=== PATIENT | female | born 1970 | race Caucasian/White ===

== ENCOUNTER 2018-01-30 09:21 | Inpatient (IN) | payer OTHER ==
[~2018-01-30] VITALS: Ht 162.6 cm; Wt 93.5 kg
[~2018-01-30 09:21] MED LIST: CYCL5TAB PO; NXM/40 PO
[2018-01-30] MEDS ORDERED: SODIUM CHLORIDE 0.9% 1000ML 1,000 ML IV STA (09:42)
[2018-01-30 09:56] LABS: BASO % 0.2 %; BASO ABS # 0.01 K/uL (0-0.2); EOS % 1.9 %; HEMATOCRIT 39.2 % (37-47); HEMOGLOBIN 12.9 g/dL (12.0-16.0); IG# 0.01 K/uL (0.00-0.02); LYMPH % 34.5 %; LYMPH ABS # 1.81 K/uL (1.2-3.4); MEAN CELL VOLUME 83.8 fL (80-100); MEAN CORPUSCULAR HEMOGLOBIN 27.6 pg (25-34); MEAN CORPUSCULAR HGB CONC 32.9 g/dl (32-36); MEAN PLATELET VOLUME 9.6 fL (7.4-10.4); MONO % 5.7 %; NEUT % 57.5 %; NEUT ABS # 3.02 K/uL (1.4-6.5); PLATELET COUNT 293 K/uL (130-400); RED CELL DISTRIBUTION WIDTH CV 14.8 % (11.5-14.5); RED CELL DISTRIBUTION WIDTH SD 45.1 fL (36.4-46.3); WHITE BLOOD COUNT 5.25 K/uL (4.8-10.8)
--- NOTE | 2018-01-30 10:05 | DIAGNOSTIC IMAGING REPORT ---
HEAD WITHOUT CONTRAST (CT) CLINICAL HISTORY: 47 years-old Female with EVALUATE WEAKNESS. Acute weakness TECHNIQUE: Multiple axial CT images of the head were obtained without contrast. A dose lowering technique was utilized adhering to the principles of ALARA. CT DOSE: 638.56 mGycm COMPARISON: Head CT 10/13/2012. FINDINGS: No acute intracranial hemorrhage, midline shift, intracranial mass, hydrocephalus, territorial ischemia or abnormal extra-axial collection. The calvarium is intact. The paranasal sinuses, mastoid air cells, and middle ear cavities are clear. IMPRESSION: No acute intracranial abnormality. The above report was generated using voice recognition software. It may contain grammatical, syntax or spelling errors. Electronically signed by: Alex Baron M.D. 01/30/2018 10:04 AM Dictated Date/Time: 01/30/2018 10:02 AM
[2018-01-30 10:15] LABS: PTT PATIENT 25.2 SECONDS (21.0-31.0)
[2018-01-30 10:18] LABS: ALBUMIN 3.8 gm/dl (3.4-5.0); ALT/SGPT 37 U/L (12-78); AST/SGOT 19 U/L (15-37); BLOOD UREA NITROGEN 16 mg/dl (7-18); CARBON DIOXIDE 28 mmol/L (21-32); CREATININE 1.08 mg/dl (0.60-1.20); GLUCOSE 128 mg/dl (70-99); POTASSIUM 3.5 mmol/L (3.5-5.1); SODIUM 139 mmol/L (136-145)
[2018-01-30 10:26] LABS: ALKALINE PHOSPHATASE 61 U/L (45-117); CKMB 0.8 ng/ml (0.5-3.6); LIPASE 218 U/L (73-393); TOTAL PROTEIN 7.2 gm/dl (6.4-8.2)
[2018-01-30] MEDS ORDERED: IBUP1TAB PO (10:33)
[2018-01-30] MEDS ORDERED: ACETAMINOPHEN 500 MG TAB PO STA (11:46)
[2018-01-30] MEDS ORDERED: LORAZEPAM 2 MG/ML 1 ML VIAL IV STA (12:50)
--- NOTE | 2018-01-30 14:05 | DIAGNOSTIC IMAGING REPORT ---
ULTRASOUND OF THE PELVIS CLINICAL HISTORY: Syncope. Positive test. COMPARISON STUDY: No priors. TECHNIQUE: Real-time, grayscale, and color flow sonography of the pelvis is performed both transabdominally and endovaginally. Images are reviewed in the transverse and longitudinal planes. FINDINGS: Uterus: The uterus is normal in size and heterogeneous and echotexture, measuring 6.7 x 3.6 x 3.8 cm. Small fibroids measure up to 2.5 cm. Endometrium: No intrauterine gestation is identified. The endometrium is normal in appearance, and the endometrial stripe is normal in thickness measuring up to 0.6 cm. Ovaries: The ovaries are normal in size and morphology. The right ovary measures 2.1 x 1.2 x 1.6 cm and the left ovary measures 2.0 x 1.2 x 1.5 cm. Normal Doppler waveforms are shown within both ovaries. Pelvis: There is no free fluid in the cul-de-sac. No concerning adnexal lesion is seen. IMPRESSION: No intrauterine gestation is identified. This could simply reflect an intrauterine gestation that is too small to visualize or a missed . Although there is no concerning adnexal lesion identified, in the setting of a positive test without a confirmed intrauterine gestation ectopic would be impossible to exclude. Close clinical, laboratory, and sonographic follow-up is recommended. Electronically signed by: William Rodriguez M.D. 01/30/2018 2:03 PM Dictated Date/Time: 01/30/2018 2:01 PM
--- NOTE | 2018-01-30 16:37 | EMERGENCY ROOM VISIT NOTE ---
History Report prepared by Erika: Sherif Voss Under the Supervision of: Dr. Telly Chung M.D. First contact with patient: 09:34 Chief Complaint: SYNCOPE Stated Complaint: SYNCOPE History of Present Illness The patient is a 47 year old female who presents to the Emergency Room by EMS with complaints of a syncopal episode occurring just prior to arrival. She passed out while standing at work. She states that she leaned against a wall to slide down, and did not fall. The patient notes that she felt very nauseous and had an episode of vomiting last night. She currently has a headache, and tingling to her toes and fingers. She states that she is intermittently seeing double currently. The patient states that she experienced some visual changes, and appeared flushed prior to the episode today. EMS noted the patient's initial blood pressure was 240/100. She denies fevers, chills, diaphoresis, visual changes, neck pain, chest pain, breathing difficulties, abdominal pain, back pain, melena, hematochezia, urinary symptoms, weakness, lymphadenopathy, rash, or other complaints. The patient has a history of a similar episode occurring several years ago which was worked up for seizure. She had a normal EEG in 2014, and a normal MRI in 2013. Source of History: patient Onset: Just prior to arrival Quality: other (syncope) Timing: other (episode) Associated Symptoms: + LOC, + headache, + nausea, + vomiting Note: Positive: tingling to the fingers and toes, and intermittent visual changes. Review of Systems See HPI for pertinent positives and negatives. A total of ten systems were reviewed and were otherwise negative. Past Medical & Surgical Medical Problems: (1) Esophageal Reflux (2) No known problems Family History Cancer Diabetes mellitus FH: colonic polyps Social History Smoking Status: Never Smoker Alcohol Use: none Marital Status: Housing Status: lives with significant other Occupation Status: employed Current/Historical Medications Scheduled PRN Ibuprofen-Diphenhydramine Citr (Advil Pm), 0.5 TAB PO HS PRN for Pain Allergies Coded Allergies: Nickel (Verified Allergy, Intermediate, rash, 01/30/18) Physical Exam Vital Signs Date Time Temp Pulse Resp B/P (MAP) Pulse Ox O2 Delivery O2 Flow Rate FiO2 01/30/18 15:37 69 18 150/93 99 Room Air 01/30/18 14:27 75 01/30/18 14:07 66 16 147/89 95 Room Air 01/30/18 12:29 75 16 141/93 95 Room Air 01/30/18 11:01 73 18 148/89 97 Room Air 01/30/18 10:15 68 20 151/85 98 Room Air 01/30/18 09:31 99 Room Air 01/30/18 09:31 37.3 79 18 192/96 99 Room Air 01/30/18 09:27 72 Physical Exam GENERAL: Awake, alert, well appearing, no distress HENT: Normocephalic, atraumatic. TM's normal. Oropharynx unremarkable. EYES: PERRL. EOMI. Normal conjunctiva. Sclera non-icteric. NECK: Supple. No nuchal rigidity. FROM. No bruit. RESPIRATORY: Breath sounds equal. No wheezes. No rhonchi. Normal respiratory effort. CARDIAC: Normal rate. Regular rhythm. No murmurs. No rubs. No JVD. GI: Soft, non distended. No tenderness to palpation. No rebound or guarding. No masses. RECTAL: Deferred. MUSCULOSKELETAL: Unremarkable. No edema. No discoloration. Gross motor strength symmetric. NEURO: Cranial nerves 2-12 grossly intact. Normal sensorium. No sensory or motor deficits noted. Speech normal. No pronator drift. Good heel to escobedo. Good rapid alternating movements. SKIN: No rash or jaundice noted. LYMPH: No adenopathy. Medical Decision & Procedures ER Provider Diagnostic Interpretation: Radiology results as stated below per my review and radiologist interpretation: HEAD WITHOUT CONTRAST (CT) FINDINGS: No acute intracranial hemorrhage, midline shift, intracranial mass, hydrocephalus, territorial ischemia or abnormal extra-axial collection. The calvarium is intact. The paranasal sinuses, mastoid air cells, and middle ear cavities are clear. IMPRESSION: No acute intracranial abnormality. The above report was generated using voice recognition software. It may contain grammatical, syntax or spelling errors. Electronically signed by: Alex Baron M.D. 01/30/2018 10:04 AM ULTRASOUND OF THE PELVIS FINDINGS: Uterus: The uterus is normal in size and heterogeneous and echotexture, measuring 6.7 x 3.6 x 3.8 cm. Small fibroids measure up to 2.5 cm. Endometrium: No intrauterine gestation is identified. The endometrium is normal in appearance, and the endometrial stripe is normal in thickness measuring up to 0.6 cm. Ovaries: The ovaries are normal in size and morphology. The right ovary measures 2.1 x 1.2 x 1.6 cm and the left ovary measures 2.0 x 1.2 x 1.5 cm. Normal Doppler waveforms are shown within both ovaries. Pelvis: There is no free fluid in the cul-de-sac. No concerning adnexal lesion is seen. IMPRESSION: No intrauterine gestation is identified. This could simply reflect an intrauterine gestation that is too small to visualize or a missed . Although there is no concerning adnexal lesion identified, in the setting of a positive test without a confirmed intrauterine gestation ectopic would be impossible to exclude. Close clinical, laboratory, and sonographic follow-up is recommended. Electronically signed by: William Rodriguez M.D. 01/30/2018 2:03 PM Laboratory Results 01/30/18 09:40 Red Blood Count 4.68, Mean Corpuscular Volume 83.8, Mean Corpuscular Hemoglobin 27.6, Mean Corpuscular Hemoglobin Concent 32.9, Mean Platelet Volume 9.6, Neutrophils (%) (Auto) 57.5, Lymphocytes (%) (Auto) 34.5, Monocytes (%) (Auto) 5.7, Eosinophils (%) (Auto) 1.9, Basophils (%) (Auto) 0.2, Neutrophils # (Auto) 3.02, Lymphocytes # (Auto) 1.81, Monocytes # (Auto) 0.30, Eosinophils # (Auto) 0.10, Basophils # (Auto) 0.01 01/30/18 09:40 Test 01/30/18 09:40 01/30/18 11:15 White Blood Count 5.25 K/uL (4.8-10.8) Red Blood Count 4.68 M/uL (4.2-5.4) Hemoglobin 12.9 g/dL (12.0-16.0) Hematocrit 39.2 % (37-47) Mean Corpuscular Volume 83.8 fL (80-100) Mean Corpuscular Hemoglobin 27.6 pg (25-34) Mean Corpuscular Hemoglobin Concent 32.9 g/dl (32-36) Platelet Count 293 K/uL (130-400) Mean Platelet Volume 9.6 fL (7.4-10.4) Neutrophils (%) (Auto) 57.5 % Lymphocytes (%) (Auto) 34.5 % Monocytes (%) (Auto) 5.7 % Eosinophils (%) (Auto) 1.9 % Basophils (%) (Auto) 0.2 % Neutrophils # (Auto) 3.02 K/uL (1.4-6.5) Lymphocytes # (Auto) 1.81 K/uL (1.2-3.4) Monocytes # (Auto) 0.30 K/uL (0.11-0.59) Eosinophils # (Auto) 0.10 K/uL (0-0.5) Basophils # (Auto) 0.01 K/uL (0-0.2) RDW Standard Deviation 45.1 fL (36.4-46.3) RDW Coefficient of Variation 14.8 % (11.5-14.5) Immature Granulocyte % (Auto) 0.2 % Immature Granulocyte # (Auto) 0.01 K/uL (0.00-0.02) Prothrombin Time 10.3 SECONDS (9.0-12.0) Prothromb Time International Ratio 1.0 (0.9-1.1) Activated Partial Thromboplast Time 25.2 SECONDS (21.0-31.0) Partial Thromboplastin Ratio 1.0 Anion Gap 4.0 mmol/L (3-11) Est Creatinine Clear Calc Drug Dose 71.3 ml/min Estimated GFR () 70.8 Estimated GFR (Non- 61.1 BUN/Creatinine Ratio 14.4 (10-20) Calcium Level 9.0 mg/dl (8.5-10.1) Magnesium Level 2.2 mg/dl (1.8-2.4) Total Bilirubin 0.5 mg/dl (0.2-1) Direct Bilirubin 0.1 mg/dl (0-0.2) Aspartate Amino Transf (AST/SGOT) 19 U/L (15-37) Alanine Aminotransferase (ALT/SGPT) 37 U/L (12-78) Alkaline Phosphatase 61 U/L (45-117) Total Creatine Kinase 107 U/L (26-192) Creatine Kinase MB 0.8 ng/ml (0.5-3.6) Creatine Kinase MB Ratio 0.7 (0-3.0) Troponin I < 0.015 ng/ml (0-0.045) Total Protein 7.2 gm/dl (6.4-8.2) Albumin 3.8 gm/dl (3.4-5.0) Lipase 218 U/L (73-393) Thyroid Stimulating Hormone (TSH) 1.060 uIu/ml (0.300-4.500) Human Chorionic Gonadotropin, Qual POS (NEG) Human Chorionic Gonadotropin, Quant 6 mIU/mL Urine Color YELLOW Urine Appearance TURBID (CLEAR) Urine pH 8.5 (4.5-7.5) Urine Specific [place] 1.018 (1.000-1.030) Urine Protein NEG (NEG) Urine Glucose (UA) NEG (NEG) Urine Ketones NEG (NEG) Urine Occult Blood NEG (NEG) Urine Nitrite NEG (NEG) Urine Bilirubin NEG (NEG) Urine Urobilinogen NEG (NEG) Urine Leukocyte Esterase NEG (NEG) Urine WBC (Auto) 1-5 /hpf (0-5) Urine RBC (Auto) 5-10 /hpf (0-4) Urine Hyaline Casts (Auto) 1-5 /lpf (0-5) Urine Epithelial Cells (Auto) 20-30 /lpf (0-5) Urine Bacteria (Auto) 1+ (NEG) Laboratory results reviewed by me Medications Administered Medications (Trade) Dose Ordered Sig/Adria Route Start Time Stop Time Status Last Admin Dose Admin Sodium Chloride 1,000 ml @ 125 mls/hr Q8H STAT IV 01/30/18 09:42 01/30/18 17:41 01/30/18 10:13 125 MLS/HR Acetaminophen (Tylenol Tab) 1,000 mg NOW STAT PO 01/30/18 11:46 01/30/18 11:47 DC 01/30/18 11:59 1,000 MG Lorazepam (Ativan Inj) 0.5 mg NOW STAT IV 01/30/18 12:50 01/30/18 12:51 DC 01/30/18 13:06 0.5 MG ECG Per My Interpretation Indication: syncope Rate (beats per minute): 74 Rhythm: normal sinus Findings: other (Normal intervals. No ST elevation. No PVCs. ) ED Course 0941: The patient was evaluated in room A11B. A complete history and physical exam was performed. 0942: Ordered Sodium Chloride 1000 ml @ 125 mls/hr IV. 1146: Ordered Tylenol Tab 1000 mg PO. 1234: I updated the patient on her test results. 1250: Ordered Ativan Inj 0.5 mg IV. 1550: Upon reexamination, the patient was resting comfortably. I discussed the test results and treatment plan with her. The patient will be evaluated for further management. Medical Decision Prior records/ancillary studies reviewed. Triage Nursing notes reviewed and agree them. Additional history obtained from the family. The patient's history was concerning for syncope. Differential diagnosis: Etiologies such as infection, hypoglycemia, electrolyte abnormalities, cardiac sources, intracerebral event, toxicologic, neurologic, as well as others were entertained. Physical examination: As above. Nonfocal. ER treatment provided: IV hydration with normal saline Oral Tylenol On reassessment the patient felt better. IV Ativan was given prior to ultrasonography Diagnostics interpretation by me: ECG: Normal as above The labs revealed an unremarkable CBC and chemistry panel. The patient had negative urinalysis. test was positive. Quantitative hCG was performed and revealed a quantitative level of 6. Imaging studies: CAT scan, x-ray and ultrasound as above. Prior record review indicates patient has had no issues with hypertension in the past. She notes a recent visit to her PCP had her blood pressure low normal. She had marked hypertension for EMS and was still very hypertensive here. The patient was informed. I recommended management in the hospital and she was in agreement. Consultation: I placed a consult with cardiology and discussed the case with Dr. Christiansen. Given the severe hypertension, of which the patient has no prior history and recent visits with her PCP were normal, it was felt to further observation the hospital was warranted. Given the positive hCG with a prior tubal and negative ultrasound I did consult with Dr. Ruiz her professor of [employer] [employer] studies. He felt that this should be repeated in about 1-2 weeks for recheck. Unlikely having anything to do with this current episode. A consultation was placed with the hospitalist. The case was discussed and diagnostics were reviewed. The patient was evaluated in the ER for further treatment. Medication Reconcilliation Current Medication List: was personally reviewed by me Blood Pressure Screening Patient's blood pressure: Elevated blood pressure Blood pressure disposition: Referred to PCP Consults Time Called: 1510 Consulting Physician: Dr. Christiansen - Cardiology Returned Call: [phone] Discussed the patient's case. Dr. Christiansen feels that observation would be reasonable given the severe hypertension with syncope. Additional Consults: Time Called: 1516 Consulted Physician: Dr. Sara KULKARNI Returned Call: [phone] Additional Comments: Discussed the patient's case. Dr. Ruiz recommends the patient have her hormone levels repeated in 1-2 weeks. Time Called: 1550 Consulted Physician: Dr. Gifty SULLIVAN Hospitalist Returned Call: [phone] Additional Comments: Discussed the patient's case. The patient will be evaluated for further treatment and disposition. Impression Primary Impression: Syncope Additional Impressions: Severe hypertension Elevated serum hCG Scribe Attestation The scribe's documentation has been prepared under my direction and personally reviewed by me in its entirety. I confirm that the note above accurately reflects all work, treatment, procedures, and medical decision making performed by me. Departure Information Dispostion Being Evaluated By Hospitalist Referrals No Doctor, Assigned (PCP) Patient Instructions My [facility] Problem Qualifiers
[2018-01-30] MEDS ORDERED: ACETAMINOPHEN 325 MG TAB PO PRN (17:15)
[2018-01-30] MEDS ORDERED: ALUMINUM/MAGNESIUM/SIMETH (MAALOX MAX) 30 ML UDC PO PRN (17:15)
[2018-01-30] MEDS ORDERED: ONDANSETRON INJ 2 MG/ML 2 ML VIAL IV PRN (17:15)
[2018-01-30] MEDS ORDERED: POLYETHYLENE (MIRALAX) 17 GM PACK PO PRN (17:15)
[2018-01-30] MEDS ORDERED: MAGNESIUM HYDROXIDE SUSP 30 ML UDC PO PRN (17:15)
[2018-01-30] MEDS ORDERED: LORAZEPAM 2 MG/ML 1 ML VIAL IV SCH (17:30)
[2018-01-30] MEDS ORDERED: HydrALAZINE HCL 20 MG/ML VIAL IV. PRN (17:30)
[2018-01-30] MEDS ORDERED: LORAZEPAM 1 MG TAB PO PRN (17:45)
--- NOTE | 2018-01-30 17:59 | History and Physical ---
History & Physical Date & Time of Service: January 30, 2018 at 17:33 Chief Complaint: Syncope Primary Care Physician: Eben Castellanos, History of Present Illness Source: patient, hospital records This is a 47 y/o female with a history of anxiety and GERD who presented to the ED on 01/30 with syncope and hypertensive emergency. The patient states that last night she was feeling ill with nausea and vomiting. She denied any chest pain, shortness of breath, fevers, abdominal pain, urinary symptoms, or diarrhea at that time. On her way to work this morning, the patient started to experience visual changes, first in her left eye and then both eyes. She describes her vision as if looking through a kaleidoscope, with various colors and odd shapes. She also described blurry vision and at times diplopia. Her field of vision also became reduced in the left eye. She then developed tingling in her lips and her left fingers, then eventually bilaterally in her fingers and toes. The patient was sitting at work and then stood up so a coworker could take her to the ED. Upon standing, she felt dizzy/lightheaded. She walked a few steps forward and then became syncopal. Per coworkers who witnessed, the patient was out for 20-30 seconds. She does not think she hit her head. She was not postictal. The patient did start to complain of a headache while waiting for EMS to arrive that was first behind her left eye, then her right gnosticism, and now located posteriorly. She currently complains of a 5/10 aching pain that is worse with light. The patient has a history of headaches and concussions but not migraines. Currently the patient states that her tingling has mostly resolved with just some minimal tingling left in her left 5th digit. Her vision changes have also resolved. In the field, EMS reported her BP as 200/140, now improved to 146/91. The patient denies fevers, chills, sweats, chest pain, palpitations, claudication, cough, wheezing, shortness of breath, abdominal pain, dysuria, hematuria, urinary retention, paralysis, weakness. Past Medical/Surgical History Medical Problems: (1) Esophageal Reflux (2) Hypertensive emergency (3) No known problems (4) Sprain of knee Headaches H/o concussions Anxiety H/o tubal ligation Family History Cancer (breast, uterine, pancreas, thyroid) Diabetes mellitus FH: colonic polyps Social History Smoking Status: Never Smoker Smokeless Tobacco Use: No Alcohol Use: heavy (few beers/night) Drug Use: none Marital Status: Housing status: lives with significant other Occupational Status: employed Allergies Coded Allergies: Nickel (Verified Allergy, Intermediate, rash, 01/30/18) Home Medications Scheduled PRN Ibuprofen-Diphenhydramine Citr (Advil Pm), 0.5 TAB PO HS PRN for Pain Review of Systems Constitutional: No fever, No chills, No sweats Eyes: +Diplopia, loss of vision, "kaleidoscope". No eye pain ENT: No hearing loss, No nasal symptoms, No trouble swallowing Respiratory: No cough, No wheezing, No shortness of breath Cardiovascular: No chest pain, No claudication, No palpitations Abdomen: +Nausea, vomiting last night. No pain Musculoskeletal: No joint pain, No muscle pain, No swelling Genitourinary - Female: No dysuria, No urinary retention, No hematuria Neurologic: +Tingling in lips, fingers, toes. No paralysis, No weakness Integumentary: No rash, No itch, No color change Physical Exam Vital Signs Date Time Temp Pulse Resp B/P (MAP) Pulse Ox O2 Delivery O2 Flow Rate FiO2 01/30/18 17:07 74 22 146/91 95 Room Air 01/30/18 15:37 69 18 150/93 99 Room Air 01/30/18 14:27 75 01/30/18 14:07 66 16 147/89 95 Room Air 01/30/18 12:29 75 16 141/93 95 Room Air 01/30/18 11:01 73 18 148/89 97 Room Air 01/30/18 10:15 68 20 151/85 98 Room Air 01/30/18 09:31 99 Room Air 01/30/18 09:31 37.3 79 18 192/96 99 Room Air 01/30/18 09:27 72 General appearance: +Obese. Well-developed, well-nourished, no apparent distress Head: Normocephalic, atraumatic Eyes: +Photosensitivity, reported increased SMITH when checking pupil reaction. Normal inspection, PERRL, EOMI ENT: Normal ENT inspection, hearing grossly normal, pharynx normal Neck: Supple, no JVD, trachea midline Respiratory/Chest: Lungs clear to auscultation, normal breath sounds, no respiratory distress Cardiovascular: Regular rate & rhythm, no gallop, no murmur Abdomen/GI: Normal bowel sounds, non-tender, soft Extremities/Musculoskeletal: Normal inspection, no calf tenderness, no pedal edema Neurological/Psych: +Motor/sensory intact and equal bilaterally. No facial droop or slurred speech. No pronator drift. No vision loss appreciated. Alert , normal mood/affect, oriented x 3 Skin: Normal color, warm/dry, no rash Diagnostics Laboratory Results Results Past 24 Hours Test 01/30/18 09:40 01/30/18 11:15 01/30/18 17:30 Range/Units White Blood Count 5.25 4.8-10.8 K/uL Red Blood Count 4.68 4.2-5.4 M/uL Hemoglobin 12.9 12.0-16.0 g/dL Hematocrit 39.2 37-47 % Mean Corpuscular Volume 83.8 80-100 fL Mean Corpuscular Hemoglobin 27.6 25-34 pg Mean Corpuscular Hemoglobin Concent 32.9 32-36 g/dl Platelet Count 293 130-400 K/uL Mean Platelet Volume 9.6 7.4-10.4 fL Neutrophils (%) (Auto) 57.5 % Lymphocytes (%) (Auto) 34.5 % Monocytes (%) (Auto) 5.7 % Eosinophils (%) (Auto) 1.9 % Basophils (%) (Auto) 0.2 % Neutrophils # (Auto) 3.02 1.4-6.5 K/uL Lymphocytes # (Auto) 1.81 1.2-3.4 K/uL Monocytes # (Auto) 0.30 0.11-0.59 K/uL Eosinophils # (Auto) 0.10 0-0.5 K/uL Basophils # (Auto) 0.01 0-0.2 K/uL RDW Standard Deviation 45.1 36.4-46.3 fL RDW Coefficient of Variation 14.8 11.5-14.5 % Immature Granulocyte % (Auto) 0.2 % Immature Granulocyte # (Auto) 0.01 0.00-0.02 K/uL Prothrombin Time 10.3 9.0-12.0 SECONDS Prothromb Time International Ratio 1.0 0.9-1.1 Activated Partial Thromboplast Time 25.2 21.0-31.0 SECONDS Partial Thromboplastin Ratio 1.0 Sodium Level 139 136-145 mmol/L Potassium Level 3.5 3.5-5.1 mmol/L Chloride Level 107 98-107 mmol/L Carbon Dioxide Level 28 21-32 mmol/L Anion Gap 4.0 3-11 mmol/L Blood Urea Nitrogen 16 7-18 mg/dl Creatinine 1.08 0.60-1.20 mg/dl Est Creatinine Clear Calc Drug Dose 71.3 ml/min Estimated GFR () 70.8 Estimated GFR (Non- 61.1 BUN/Creatinine Ratio 14.4 10-20 Random Glucose 128 70-99 mg/dl Calcium Level 9.0 8.5-10.1 mg/dl Magnesium Level 2.2 1.8-2.4 mg/dl Total Bilirubin 0.5 0.2-1 mg/dl Direct Bilirubin 0.1 0-0.2 mg/dl Aspartate Amino Transf (AST/SGOT) 19 15-37 U/L Alanine Aminotransferase (ALT/SGPT) 37 12-78 U/L Alkaline Phosphatase 61 45-117 U/L Total Creatine Kinase 107 26-192 U/L Creatine Kinase MB 0.8 0.5-3.6 ng/ml Creatine Kinase MB Ratio 0.7 0-3.0 Troponin I < 0.015 0-0.045 ng/ml Total Protein 7.2 6.4-8.2 gm/dl Albumin 3.8 3.4-5.0 gm/dl Lipase 218 73-393 U/L Thyroid Stimulating Hormone (TSH) 1.060 0.300-4.500 uIu/ml Human Chorionic Gonadotropin, Qual POS NEG Human Chorionic Gonadotropin, Quant 6 mIU/mL Urine Color YELLOW Urine Appearance TURBID CLEAR Urine pH 8.5 4.5-7.5 Urine Specific [place] 1.018 1.000-1.030 Urine Protein NEG NEG Urine Glucose (UA) NEG NEG Urine Ketones NEG NEG Urine Occult Blood NEG NEG Urine Nitrite NEG NEG Urine Bilirubin NEG NEG Urine Urobilinogen NEG NEG Urine Leukocyte Esterase NEG NEG Urine WBC (Auto) 1-5 0-5 /hpf Urine RBC (Auto) 5-10 0-4 /hpf Urine Hyaline Casts (Auto) 1-5 0-5 /lpf Urine Epithelial Cells (Auto) 20-30 0-5 /lpf Urine Bacteria (Auto) 1+ NEG Microbiology Results 01/30/18 Urine Culture, Received Pending Diagnostic Radiology Reviewed the following studies and agree with interpretation as follows: HEAD WITHOUT CONTRAST (CT) CLINICAL HISTORY: 47 years-old Female with EVALUATE WEAKNESS. Acute weakness TECHNIQUE: Multiple axial CT images of the head were obtained without contrast. A dose lowering technique was utilized adhering to the principles of ALARA. CT DOSE: 638.56 mGycm COMPARISON: Head CT 10/13/2012. FINDINGS: No acute intracranial hemorrhage, midline shift, intracranial mass, hydrocephalus, territorial ischemia or abnormal extra-axial collection. The calvarium is intact. The paranasal sinuses, mastoid air cells, and middle ear cavities are clear. IMPRESSION: No acute intracranial abnormality. ULTRASOUND OF THE PELVIS CLINICAL HISTORY: Syncope. Positive test. COMPARISON STUDY: No priors. TECHNIQUE: Real-time, grayscale, and color flow sonography of the pelvis is performed both transabdominally and endovaginally. Images are reviewed in the transverse and longitudinal planes. FINDINGS: Uterus: The uterus is normal in size and heterogeneous and echotexture, measuring 6.7 x 3.6 x 3.8 cm. Small fibroids measure up to 2.5 cm. Endometrium: No intrauterine gestation is identified. The endometrium is normal in appearance, and the endometrial stripe is normal in thickness measuring up to 0.6 cm. Ovaries: The ovaries are normal in size and morphology. The right ovary measures 2.1 x 1.2 x 1.6 cm and the left ovary measures 2.0 x 1.2 x 1.5 cm. Normal Doppler waveforms are shown within both ovaries. Pelvis: There is no free fluid in the cul-de-sac. No concerning adnexal lesion is seen. IMPRESSION: No intrauterine gestation is identified. This could simply reflect an intrauterine gestation that is too small to visualize or a missed . Although there is no concerning adnexal lesion identified, in the setting of a positive test without a confirmed intrauterine gestation ectopic would be impossible to exclude. Close clinical, laboratory, and sonographic follow-up is recommended. EKG Reviewed EKG and agree with interpretation as follows: 74 bpm, NSR Impression Assessment and Plan 47 y/o female with a history of anxiety and GERD who presented to the ED on 01/30 with syncope and hypertensive emergency. BP had been 200/140 per EMS report, down to 192/96 on arrival to ED. Otherwise afebrile, VSS. Head CT no acute disease. Prior to CT, test came back positive, quantitative HCG 6. Pt is s/p tubal ligation. Labs otherwise unremarkable. BP down to 146/91 at admission. Hypertensive emergency, syncope -Admit to telemetry -Trend cardiac enzymes q8h x3, first set negative -Echocardiogram -Pt has no history of HTN, not on an antihypertensives. Will need to rule out pheo, renal artery stenosis, etc. -Start lisinopril 10 mg PO qd -Cover with hydralazine 10 mg IV q6h prn SBP >180 -Check fractionated plasma metanephrine, renin, aldosterone, cortisol levels -Renal artery ultrasound -TSH WNL -Will also check brain MRI given vision changes/tingling. Give Ativan prior to MRI d/t claustrophobia Alcohol use -Alcohol withdrawal protocol -Ativan PO prn -Check B12, folate, also given tingling -Start thiamine 100 mg PO qd, folic acid 1 mg PO qd, MVI Anxiety--noted, not on meds for this GERD -Supposed to be on Protonix but has not taken for a while at home. Will start here, Protonix 40 mg PO qd also given recent N/V Positive HCG of 6 -ED physician spoke with PHOTOGRAPHIC MACHINE OPERATOR Dr. Ruiz (who pt also sees outpatient), recommended repeating HCG in 1-2 weeks and outpatient follow up -Pt states she is overdue for f/u with Dr. Ruiz anyway, would recommend day team schedule this for her -Pelvic ultrasound did not show uterine DVT prophylaxis -Enoxaparin 40 mg SC q24h -CLIFF Andersons Code Status -Level I, FULL RESUSCITATION STATUS Resuscitation Status VTE Prophylaxis Will order VTE Prophylaxis: Yes
[2018-01-30] MEDS ORDERED: IV FLUIDS COMPLETED PRN (18:30)
[2018-01-30 18:50] LABS: CKMB 0.6 ng/ml (0.5-3.6)
[2018-01-30 19:00] VITALS: Ht 162.6 cm; Wt 93.5 kg
[2018-01-30 20:00] VITALS: BP_SYST 136; BP_SYST 139; BP_SYST 152; BP_DIAS 86; BP_DIAS 88; BP_DIAS 89; PULSE 64; PULSE 66; PULSE 78; TEMP 36.7; O2SAT 96
[2018-01-30] MEDS ORDERED: ENOXAPARIN 40 MG/0.4 ML SYR SC SCH (21:00)
--- NOTE | 2018-01-30 23:04 | DIAGNOSTIC IMAGING REPORT ---
BRAIN WITHOUT CONTRAST CLINICAL HISTORY: 47 years-old Female presenting with increased blood pressure, blurred vision, headache, syncope. TECHNIQUE: Multisequence, multiplanar MR imaging of the brain was performed without the use of intravenous contrast. IV contrast: None. COMPARISON: Noncontrast CT head performed earlier the same day as well as brain MR from 2013. FINDINGS: Ventricles and sulci normal in size. Brain parenchyma normal in appearance with preserved berkowitz-white differentiation. No mass effect or midline shift. No restricted diffusion to suggest acute ischemia. No hemorrhage. No extra-axial fluid collection. T2 skull base flow voids preserved. Bone marrow signal intensity within the calvarium within normal limits. IMPRESSION: 1. No acute intracranial abnormality. Electronically signed by: Mart Holland M.D. 01/30/2018 11:03 PM Dictated Date/Time: 01/30/2018 11:00 PM
[2018-01-31] VITALS (7 sets, daily range): BP systolic 100–142; BP diastolic 67–89; PULSE 59–73; TEMP 36.5–37; O2SAT 92–97
[2018-01-31 01:59] LABS: CKMB 0.8 ng/ml (0.5-3.6)
[2018-01-31 06:17] LABS: HEMATOCRIT 38.4 % (37-47); HEMOGLOBIN 12.4 g/dL (12.0-16.0); MEAN CORPUSCULAR HEMOGLOBIN 27.1 pg (25-34); MEAN CORPUSCULAR HGB CONC 32.3 g/dl (32-36); MEAN PLATELET VOLUME 9.6 fL (7.4-10.4); PLATELET COUNT 283 K/uL (130-400); RED CELL DISTRIBUTION WIDTH CV 14.6 % (11.5-14.5); WHITE BLOOD COUNT 5.06 K/uL (4.8-10.8)
[2018-01-31 06:52] LABS: CALCIUM 8.1 mg/dl (8.5-10.1); CREATININE 0.9 mg/dl (0.60-1.20); POTASSIUM 4.1 mmol/L (3.5-5.1)
--- NOTE | 2018-01-31 07:34 | DIAGNOSTIC IMAGING REPORT ---
DOPPLER ULTRASOUND OF THE RENAL ARTERIES CLINICAL HISTORY: Hypertension. COMPARISON STUDY: No priors. TECHNIQUE: Doppler sonography of the renal arteries was performed to assess renal artery stenosis. Images are reviewed in the transverse and longitudinal planes. FINDINGS: The kidneys history cortical atrophy. The right kidney measures 10.5 cm in length and the left kidney measures 12.0 cm in length. There is no hydronephrosis. A 2.7 cm cyst is noted in the right lower pole. On the right, intrarenal arterial resistive indices range from 0.56 to 0.59. Intrarenal arterial waveforms are normal with brisk upstrokes. The right renal arterial waveform is normal, and velocities within the right renal artery measure up to 118 cm/sec. The right renal vein is patent. On the left, intrarenal arterial resistive indices range from 0.57 to 0.59. Intrarenal arterial waveforms are normal with brisk upstrokes. The left renal arterial waveform is normal, and velocities within the left renal artery measure up to 88 cm/sec. The left renal vein is patent. IMPRESSION: 1. The kidneys demonstrate cortical atrophy and are without hydronephrosis. 2. There is no sonographic evidence of renal artery stenosis. Electronically signed by: William Rodriguez M.D. 01/31/2018 7:32 AM Dictated Date/Time: 01/31/2018 7:26 AM
[2018-01-31] MEDS ORDERED: THIAMINE HCL 100 MG TAB PO SCH (09:00)
[2018-01-31] MEDS ORDERED: PANTOprazole SOD 40 MG TAB PO SCH (09:00)
[2018-01-31] MEDS ORDERED: LISINOPRIL 10 MG TAB PO SCH (09:00)
[2018-01-31] MEDS ORDERED: MULTIVITAMIN TAB PO SCH (09:00)
[2018-01-31] MEDS ORDERED: VERAPAMIL HCL 120 MG TABCR PO STA (13:05)
[2018-01-31] MEDS ORDERED: VERA120C2 PO (13:06)
--- NOTE | 2018-01-31 13:19 | Discharge Instructions ---
Discharge Instructions Date of Service January 31, 2018. Admission Reason for Admission: Hypertensive Emergency,Syncope Discharge Discharge Diagnosis / Problem: Complex migraine headache, elevated blood pressure Discharge Goals Goal(s): Decrease discomfort, Improve function, Improve disease control Activity Recommendations Activity Limitations: per Instructions/Follow-up section Lifting Limitations: none Exercise/Sports Limitations: as tolerated May Resume Sexual Activity: when tolerated Shower/Bathe: no limitations Driving or Machine Use: no limitations would recommend that you stop riding horses as previously recommended by Dr. Campbell . Instructions / Follow-Up Instructions / Follow-Up Medications: - VERAPAMIL: 120mg every morning, this will treat blood pressure and help to prevent migraine headaches - FIORICET: take as needed for severe headache/migraine, you can continue to use Advil if headache is mild Complex migraine headache: headache associated with intense visual changes, numbness, syncope, nausea certainly prone to these given your history of multiple concussions will start on Verapamil to try to prevent headaches, decrease frequency can use Fioricet as needed for migraine, take when you get visual changes before the headache starts highly recommend that you follow up with Dr. Campbell as long as you are willing to stop riding horses call his office at [phone] to set up an appointment in one month follow up with Dr. Castellanos in one week, call for appointment Elevated blood pressure: markedly high on admission with systolic pressures in the 190-200's responded quickly to treatment difficult to determine if BP was up due to stress and headache or if it was playing a role in headache no renal artery stenosis plasma metanephrine levels sent out but will take days to come back follow up with Dr. Castellanos for results started on Verapamil 120mg daily, this is starting dose, if pressures elevated in the office then may need higher doses Positive test: hcg level was only 6, indicates 1st week gestation age as we discussed, no evidence of intrauterine or ectopic on US, but would be too early to see anything Dr. Ruiz recommends repeat hcg level in 1-2 weeks call his office later in the day after you get blood drawn and he will give you further instructions FOLLOW UP - Dr. Castellanos next week for follow up on blood pressure and migraine headache - Dr. Campbell in one month, call his office for appointment as long as you are willing to not ride horses, strongly recommend that you do this - Dr. Ruiz in 1-2 weeks for further instructions on positive hcg Current Hospital Diet Patient's current hospital diet: Regular Diet Discharge Diet Recommended Diet: Regular Diet Procedures Procedures Performed: Kirstie US - no renal artery stenosis MRI brain - no acute intracranial abnormalities Pelvis US - no intrauterine or ectopic pregnancies seen Pending Studies Studies pending at discharge: yes List of pending studies: plasma metanephrine levels (ruling out pheochromocytoma) Medical Emergencies . Who to Call and When: Medical Emergencies: If at any time you feel your situation is an emergency, please call 911 immediately. . Non-Emergent Contact Non-Emergency issues call your: Primary Care Provider Call Non-Emergent contact if: you have any medication questions . . "Provider Documentation" section prepared by Stahish Hernandez. . [place] Drug Monitoring Program Search Results: no issues identified
[2018-01-31] MEDS ORDERED: FRCT/ PO (13:24)
--- NOTE | 2018-02-01 17:32 | Discharge Summary ---
Discharge Summary Date of Service January 31, 2018. Discharge Summary Admission Date: January 30, 2018 at 17:33 Discharge Date: January 31, 2018 Discharge Disposition: Home Principal Diagnosis: Complex migraine Problems/Secondary Diagnoses: Accelerated hypertension h/o concussions, multiple Alcohol abuse GERD Procedures: MRI brain - normal Pelvic and transvaginal US - no intrauterine , no ectopic Consultations: Gynecology - over phone, in the ED Medication Reconciliation New Medications: Acetamin/Butalbital/Caffeine (Fioricet) 1 Ea Tab 1 TAB PO Q4 PRN for Headache, #60 TAB 1-2 tabs q4 hours as needed for headache, max dose is 6 tablets in one day Verapamil Hcl (Verapamil Hcl Er) 120 Mg Cap 120 MG PO QAM for 30 Days, #30 CAP 3 Refills Continued Medications: Ibuprofen-Diphenhydramine Citr (Advil Pm) 1 Tab Tab 0.5 TAB PO HS PRN for Pain Discharge Exam Patient feeling much better the next day, no headache, blood pressure normalized , no visual disturbances, no arm tingling. Patient reports that for the past 5 years she has been prone to headaches, visual changes and she has passed out several times. Certainly the day of admission was the most intense her symptoms had ever felt. Discussed her past with concussions, several falls while riding her horse, most recent injury was 2 years prior. She had seen a concussion specialist in [place]. She had been following with Dr. Campbell but he refused to see her further if she insisted on riding her horse. She confirmed that she was still riding her horse up until time of admission. Discussed normal MRI results. Discussed the nature of the headache with visual changes preceding the headache, intense pain behind the eyes, more unilateral, associated with nausea. This time she experienced neurologic symptoms with left sided numbness, she had a syncopal episode. Never had an issue with hypertension but blood pressure quite high on admission. Discussed diagnosis of complex migraine, fit with symptoms of headache, normal MRI brain, and certainly she would be prone to them with h/o multiple concussions. She agreed to take Verapamil. I strongly encouraged her several times to stop riding horses and call Dr. Campbell' s office for appointment. Her was there, he strongly encouraged this plan as well. Discussed positive Hcg of 6. h/o tubal ligation years ago by Dr. Ruiz. Dr. Ruiz recommends repeat hcg level in 1-2 weeks, he will give further instruction. Review of Systems: Constitutional: No fever, No chills, No sweats, No weight loss, No weakness , No fatigue, No problem reported Eyes: No worsening of vision, No eye pain, No redness, No discharge, No diplopia, No problem reported ENT: No hearing loss, No unusual epistaxis, No nasal symptoms, No sore throat, No tinnitus, No dental problems, No trouble swallowing, No problem reported Respiratory: No cough, No sputum, No wheezing, No shortness of breath, No dyspnea on exertion, No dyspnea at rest, No hemoptysis, No problem reported Cardiovascular: No chest pain, No orthopnea, No PND, No edema, No claudication, No palpitations, No problem reported Abdomen: No pain, No nausea, No vomiting, No diarrhea, No constipation, No GI bleeding, No problem reported Musculoskeletal: No joint pain, No muscle pain, No swelling, No calf pain, No problem reported Genitourinary - Female: No dysuria, No urinary frequency, No urinary urgency , No urinary incontinence, No urinary retention, No hematuria Neurologic: No memory loss, No paralysis, No weakness, No numbness/tingling , No vertigo, No balance problems, No problem reported Psychiatric: No depression symptoms, No anhedonism, No anxiety, No insomnia , No substance abuse, No problem reported Endocrine: No fatigue, No excessive thirst, No excessive urination, No problem reported Hematologic / Lymphatic: No abnormal bleeding/bruising, No clotting problems , No swollen lymph nodes, No night sweats, No problem reported Integumentary: No rash, No itch, No new/changing skin lesions, No color change, No bleeding, No problem reported Physical Exam: General Appearance: WD/WN, no apparent distress Eyes: normal inspection, PERRL, EOMI, sclerae normal ENT: normal ENT inspection, hearing grossly normal, pharynx normal Neck: supple, no adenopathy, no JVD, trachea midline Respiratory/Chest: chest non-tender, lungs clear, normal breath sounds, no respiratory distress, no accessory muscle use Cardiovascular: regular rate, rhythm, no edema, no gallop, no JVD, no murmur , normal peripheral pulses Abdomen / GI: normal bowel sounds, non tender, soft, no organomegaly Extremities: normal inspection, no calf tenderness, normal capillary refill , no pedal edema, normal range of motion, pelvis stable Neurologic/Psychiatric: clothing consultant II-XII nml as tested, no motor/sensory deficits , alert, normal mood/affect, normal reflexes, oriented x 3 Skin: normal color, warm/dry, no rash Lymphatic: no adenopathy Hospital Course 47 y/o female with a history of anxiety and GERD who presented to the ED on 01/30 with syncope and hypertensive emergency. BP had been 200/140 per EMS report, down to 192/96 on arrival to ED. Otherwise afebrile, VSS. Head CT no acute disease. Prior to CT, test came back positive, quantitative HCG 6. Pt is s/p tubal ligation. Labs otherwise unremarkable. BP down to 146/91 at admission. Syncope, hypertension, left sided numbness, visual changes associated with severe headache - likely a complex migraine MRI brain normal, no evidence of acute stroke visual changes preceded the headache by a few minutes and she reports a strong history of visual changes preceding headaches reports photophobia, needing quiet, nausea associated with her headaches she never considered that they could be a migraine headache discussed complex migraine diagnosis since this headache was associated with left sided numbness, syncope discussed that the relation of hypertension was difficult to determine, was blood pressure up due to migraine and stress or vise versa her blood pressure improved dramatically in less than 24 hours on minimal medications received Lisinopril 10mg in the morning and was normotensive recommended starting Verapamil 120mg daily to both control blood pressure and be prophylactic against migraine headaches provided script for Fioricet to take for migraines strongly recommended follow up with Dr. Campbell, see below Hypertension: quite elevated on admission, likely due to pain with migraine and stress from syncope quickly returned to normotensive ranges discharge on Verapamil 120mg daily, follow up with Dr. Castellanos of note, she had a renal doppler that ruled out renal artery stenosis plasma metanephrines were ordered and sent out, will take days to return Post concussion syndrome several concussions over the years from falling off horse used to follow with Dr. Campbell but he refused to continue seeing her if she continued to ride horses discussed that every day she chooses to ride horse and risk another head injury, she is risking serious, permanent brain damage one further concussion could change her life for the worse discussed that migraines likely a result of the concussions recommended that she call Dr. Campbell for appointment if she was willing to give up riding horses she agreed that it was time and supported this decision Positive HCG of 6 -ED physician spoke with [facility] Dr. Ruiz (who pt also sees outpatient), recommended repeating HCG in 1-2 weeks and outpatient follow up -Pelvic ultrasound and transvaginal US did not show uterine or ectopic DVT prophylaxis -Enoxaparin 40 mg SC q24h -CLIFF roth and SCDs Code Status -Level I, FULL RESUSCITATION STATUS Total Time Spent: Greater than 30 minutes This includes examination of the patient, discharge planning, medication reconciliation, and communication with other providers. Discharge Instructions Please refer to the electronic Patient Visit Report (Discharge Instructions) for additional information. Follow-Up Dr. Castellanos in one week for blood pressure check, follow up on migraine headaches Dr. Campbell in one month for complex migraine Dr. Riuz in 1-2 weeks for positive beta HCG Additional Copies To Eben Castellanos, DO; Makayla Campbell M.D.; Ankur Ruiz M.D.
== END 2018-01-31 14:07 | disposition home or self-care (01) | DRG 103 ==
LOC: EDBD 09:21 → C.EDA 09:21 → C.MED 17:33 → ENRESERV 17:34
PROVIDERS: ADMIT Hospitalist; ATTEND Internal Medicine
DX: G43.109 Migraine with aura, not intractable, without status migrainosus (principal); I16.1 Hypertensive emergency; I10 Essential (primary) hypertension; F07.81 Postconcussional syndrome; R55 Syncope and collapse; H53.8 Other visual disturbances; R20.0 Anesthesia of skin; R79.89 Other specified abnormal findings of blood chemistry; F40.240 Claustrophobia; K21.9 Gastro-esophageal reflux disease without esophagitis; F10.10 Alcohol abuse, uncomplicated; Z98.51 Tubal ligation status; Z51.81 Encounter for therapeutic drug level monitoring; Z91.048 Other nonmedicinal substance allergy status; Z83.3 Family history of diabetes mellitus; Z83.79 Family history of other diseases of the digestive system; Z80.3 Family history of malignant neoplasm of breast; Z80.49 Family history of malignant neoplasm of other genital organs; Z80.0 Family history of malignant neoplasm of digestive organs; Z80.8 Family history of malignant neoplasm of other organs or systems

== ENCOUNTER → 2018-02-11 | Outpatient (CLI) | payer OTHER ==
[~2018-02-11] MED LIST changes: -CYCL5TAB PO; +FRCT/ PO; +IBUP1TAB PO; -NXM/40 PO; +VERA120C2 PO
== END | disposition home or self-care (01) ==
LOC: C.LAB 09:19
PROVIDERS: ATTEND Obstetrics & Gynecology
DX: N91.2 Amenorrhea, unspecified (principal)